=== PATIENT | male | born 1945 | race African-American/Black ===

== ENCOUNTER 2018-11-08 09:04 | Emergency (ER) | payer OTHER ==
[2018-11-08 09:13] VITALS: BP 190/107
--- NOTE | 2018-11-08 09:55 | UC ---
Skin Complaint HPI - HPI Summary HPI Summary: 72-year-old male comes in with chief complaint of a rash. Going on for about 4 months. It's on his neck and shoulders and anterior chest. It itches quite a bit. He's tried quite a few different creams soaps and lotions without much relief. It has been worse in the past with skin breakage. He does not have any skin breakage at this time. No fevers or chills feels well otherwise. - History of Current Complaint Chief Complaint: UCRash Time Seen by Provider: 11/08/18 09:42 Stated Complaint: RASH Pain Intensity: 0 - Allergy/Home Medications Allergies/Adverse Reactions: Allergies Allergy/AdvReac Type Severity Reaction Status Date / Time No Known Allergies Allergy Verified 11/08/18 09:13 PMH/Surg Hx/FS Hx/Imm Hx Previously Healthy: Yes Cardiovascular History: Hypertension - Surgical History Surgical History: Yes Surgery Procedure, Year, and Place: RADIATION - Family History Known Family History: Positive: Non-Contributory - Social History Alcohol Use: Occasionally Substance Use Type: None Smoking Status (MU): Never Smoked Tobacco Have You Smoked in the Last Year: No Review of Systems All Other Systems Reviewed And Are Negative: Yes Constitutional: Positive: Negative Skin: Positive: Rash Eyes: Positive: Negative ENT: Positive: Negative Respiratory: Positive: Negative Cardiovascular: Positive: Negative Gastrointestinal: Positive: Negative Motor: Positive: Negative Neurovascular: Positive: Negative Musculoskeletal: Positive: Negative Neurological: Positive: Negative Psychological: Positive: Negative Is Patient Immunocompromised?: No Physical Exam Triage Information Reviewed: Yes Appearance: Well-Appearing, No Pain Distress, Well-Nourished Vital Signs: Initial Vital Signs Temp 97.8 F 11/08/18 09:07 Pulse 64 11/08/18 09:07 Resp 17 11/08/18 09:07 BP 190/107 11/08/18 09:07 Pulse Ox 99 11/08/18 09:07 Vital Signs Reviewed: Yes Eye Exam: Normal Eyes: Positive: Conjunctiva Clear Neck exam: Normal Neck: Positive: Supple Respiratory: Positive: No respiratory distress Musculoskeletal Exam: Normal Musculoskeletal: Positive: Strength Intact, ROM Intact Neurological Exam: Normal Neurological: Positive: Alert, Muscle Tone Normal Psychological Exam: Normal Psychological: Positive: Age Appropriate Behavior Skin: Positive: Other - Around the neck and shoulders and anterior chest patient has dry flaking skin overlying an erythematous base that is blanching. There is no obvious skin break or drainage. Course/Dx - Course Course Of Treatment: Overall it appears patient's having dry skin. The plan is to use [id number] Cetaphil moisturizing cream. We'll do a short course of steroids with the Medrol Dosepak. He'll have him follow-up with dermatology. Reevaluation sooner if worse or any concerns. - Diagnoses Provider Diagnosis: Rash Discharge - Sign-Out/Discharge Documenting (check all that apply): Patient Departure All imaging exams completed and their final reports reviewed: No Studies - Discharge Plan Condition: Stable Disposition: HOME Prescriptions: methylPREDNISolone [Medrol Dosepak 4 MG*] 0 mg PO .SEE LORENZA INSTRUCTION #1 lorenza Patient Education Materials: Acute Rash (ED) Referrals: Jaylene Gill MD [Primary Care Provider] - Santos Erickson MD [Medical Doctor] - Additional Instructions: FOLLOW UP WITH DERMATOLOGY. USE OVER THE COUNTER CETAPHIL MOISTURIZING CREAM AFTER YOUR COOL SHOWER. GET RECHECKED FOR ANY WORSENING OF YOUR CONDITION OR QUESTIONS OR CONCERNS. - Billing Disposition and Condition Condition: STABLE Disposition: Home
== END 2018-11-08 10:00 | disposition home or self-care (01) ==
LOC: UCEAST 09:04
DX: R21 Rash and other nonspecific skin eruption (principal); I10 Essential (primary) hypertension
CPT/HCPCS: 99212; G0463